=== PATIENT | male | born 1950 | race Hispanic/Latino ===

== ENCOUNTER 2021-08-06 10:00 | Outpatient (RCR) | payer MEDICARE | END 2021-08-09 | LOC: PT 10:00 | PROVIDERS: ATTEND Specialist | DX: S86.811A Strain of other muscle(s) and tendon(s) at lower leg level, right leg, initial encounter (principal); S76.811A Strain of other specified muscles, fascia and tendons at thigh level, right thigh, initial encounter | CPT/HCPCS: 97139 ==

== ENCOUNTER 2021-08-22 09:57 | Outpatient (RCR) | payer MEDICARE | END 2021-09-09 | LOC: PT 09:57 | PROVIDERS: ATTEND Specialist | DX: S86.811D Strain of other muscle(s) and tendon(s) at lower leg level, right leg, subsequent encounter (principal); S76.311D Strain of muscle, fascia and tendon of the posterior muscle group at thigh level, right thigh, subsequent encounter; M62.81 Muscle weakness (generalized) ==

== ENCOUNTER 2022-08-16 15:51 | Emergency (ER) | payer OTHER ==
[~2022-08-16] VITALS: Ht 172.7 cm; Wt 81.2 kg
[2022-08-16 16:23] VITALS: O2SAT 100
[2022-08-16] MEDS ORDERED: KEFLEX125 MG/5 M PO (16:36)
[2022-08-16] MEDS ORDERED: LIDOCAINE 1% 10 ML MULTIDOSE VIAL IJ ONE (16:45)
[2022-08-16] MEDS ORDERED: BACITRACIN ZINC 0.9GM TP ONE (16:47)
== END 2022-08-16 18:45 | disposition home or self-care (01) ==
LOC: ER 17:27
DX: S61.216A Laceration without foreign body of right little finger without damage to nail, initial encounter (principal); X58.XXXA Exposure to other specified factors, initial encounter
CPT/HCPCS: 99282